=== PATIENT | male | born 1975 | race Caucasian/White ===

== ENCOUNTER 2019-05-24 21:32 | Emergency (ER) | payer OTHER ==
[~2019-05-24] VITALS: Ht 175.3 cm; Wt 85.3 kg
[2019-05-25] MEDS ORDERED: ULTRAM50 MG PO (00:22)
== END 2019-05-25 00:46 | disposition home or self-care (01) ==
LOC: ER 21:32
DX: S40.012A Contusion of left shoulder, initial encounter (principal); S60.222A Contusion of left hand, initial encounter; W18.39XA Other fall on same level, initial encounter; Y93.89 Activity, other specified; Y92.89 Other specified places as the place of occurrence of the external cause; Y99.8 Other external cause status